=== PATIENT | male | born 1975 | race Caucasian/White ===

== ENCOUNTER 2016-09-25 20:07 | Emergency (ER) | payer OTHER ==
[~2016-09-25] VITALS: Ht 177.8 cm; Wt 105.2 kg
[~2016-09-25 20:07] MED LIST: CLONAZEPAM 1 MG1 M1 PO; DENIES; ERYTHROMYCIN E3.5 G2 OP; NORCO 5-325 TA1 EACH PO; PERPHEN AMITRI PO; RISPERDAL M-TAB2 MG PO; SEROQUEL 100 M100 M1 PO; STRATTERA60 MG PO; VYBRID; [UNRECOGNIZED DRUG - OTHER]
[2016-09-25 20:12] VITALS: BP 128/80
[2016-09-25] MEDS ORDERED: TRIPLE ANTIBIOT30 G2 TP (20:20)
== END 2016-09-25 20:25 | disposition home or self-care (01) ==
LOC: ER 20:07
DX: T22.212A Burn of second degree of left forearm, initial encounter (principal); F10.99 Alcohol use, unspecified with unspecified alcohol-induced disorder; Z88.0 Allergy status to penicillin; Z98.890 Other specified postprocedural states; X16.XXXA Contact with hot heating appliances, radiators and pipes, initial encounter; Y93.89 Activity, other specified; Y92.89 Other specified places as the place of occurrence of the external cause; Y99.8 Other external cause status

== ENCOUNTER → 2017-04-11 | Outpatient (CLI) | payer OTHER ==
[~2017-04-11] MED LIST changes: +TRIPLE ANTIBIOT30 G2 TP
== END ==
LOC: RAD 17:37
DX: R06.09 Other forms of dyspnea (principal)

== ENCOUNTER 2020-09-30 18:01 | Inpatient (IN) | payer OTHER ==
[~2020-09-30] VITALS: Ht 152.4 cm; Wt 103.0 kg
[2020-09-30 18:19] VITALS: BP 133/85
[2020-09-30 21:13] LABS: ABSOLUTE NEUTROPHILS 13.6 thou/uL (1.4-8.2); BASOPHILS 0.5 % (0.0-2.0); EOSINOPHILS 0.1 % (0.0-3.0); HEMATOCRIT 47.8 % (42.0-52.0); HEMOGLOBIN 16.5 gm/dL (14.0-18.0); LYMPHOCYTES 8.5 % (24.0-44.0); MCH 32.4 pg (26.0-34.0); MCHC 34.6 g/dL (28.0-37.0); MCV 93.4 fL (80.0-100.0); MONOCYTES 3.5 % (1.0-8.0); PLATELET COUNT 254 thou/uL (150-400); POLYS 87.4 % (36.0-66.0); RBC 5.11 mil/uL (4.50-6.00); RDW 13.1 % (10.5-14.5); WBC 15.5 thou/uL (4.0-11.0)
[2020-09-30 21:17] LABS: CALCIUM 8.9 mg/dL (8.5-10.1); POTASSIUM 4.3 mmol/L (3.5-5.1)
[2020-10-01] VITALS (9 sets, daily range): BP systolic 113–142; BP diastolic 67–88
[2020-10-01] MEDS ORDERED: BUSPIRONE HCL10 MG PO ×2 (00:13→11:43)
[2020-10-01] MEDS ORDERED: HYDROXYZINE HCL50 MG PO (00:13)
[2020-10-01] MEDS ORDERED: QUETIAPINE FUM100 MG PO (00:17)
[2020-10-01] MEDS ORDERED: OXCARBAZEPINE600 MG PO (00:17)
--- NOTE | 2020-10-01 05:43 | NUR ---
Today this pt has been NSR in the 80s on the heart monitor with stable VS and some stated throat pain in which he was wanting to be screened for strep. He has been oriented to the room and the call light in place and he understands that he has to call before he gets up. new orders have been started and he is otherwise asleep awaiting for the next plan.
[2020-10-01] MEDS ORDERED: SEROQUEL 100 M100 M1 (11:31)
--- NOTE | 2020-10-01 15:12 | NUR ---
Pt is AXOX4. C/O headache pain and nausea and vomiting. Says he feels dizzy sometimes. Lungs clear bowel sounds active. IV in Right AC running .9 NS at 100/hr. Tele is running NSR. Bed in low position and call light within reach.
--- NOTE | 2020-10-01 15:37 | NUR ---
PT ADMITTED RELATED TO VERTIGO. CM MET WITH PT AND KAY BABIN AT BEDSIDE THIS DAY. PT APPEARED TO BE A&O X4. CM ROLE INTRODUCED. PT INDICATED HE RESIDES IN A HOUSE ALONE WITH 1 STEP TO ENTER AND NO STEPS INSIDE. 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 PT INDICATED NO DME OR HH HX. PT INDICATED NO HH HX. PT'S PCP IS DR. LEANDER PARRISH. PT WAS TO HAVE A NEURO CONSULT WITH MRI AND AN ENT CONSULT. PT HAD MRI THIS DAY AND IT INDICATED THAT PT HAD STROKE. CARE TEAM INDICATED THAT PT IS TO TRANSFER TO CCU ONCE BED IS AVAIABLE. CM FOLLOWING REGARDING DC PLANNING.
--- NOTE | 2020-10-01 17:23 | NUR ---
PT ORIENTED TO ROOM AND UNIT, BED LOW AND LOCKED, SIDE RAILS UP X3 CALL LIGHT IN REACH, TELE APPLIED. WILL CONTINUE TO ASSESS.
--- NOTE | 2020-10-02 03:14 | NUR ---
ASSESSMENT: PT REMAIN ALERT AND ORIENT TIMES FOUR. NO SIGNIFICANT CHANGES WITH NIH. PT ABLE TO FOLLOW COMMANDS, NO DRIFT UE/LE, DOES NOT NEGLECT NEITHER SIDE. NO VISUAL LOSS OR CHANGES. C/O OF MILD PIMENTEL, TYLENOL AND ZOFRAN GIVEN WITH GOOD RELIEF. SR PER HANNAH, WILL CONTINUE TO MONITOR.
[2020-10-02 04:18] VITALS: BP 116/72
--- NOTE | 2020-10-02 07:18 | EKG ---
[address] [address] ELECTROCARDIOGRAM REPORT Name: MARILIAEDGAR MILLSIN Nargis Room #: 208-P ADM IN M.R.#: [id number] Admission: 09/30/20 Attend Phys: Britotn Rene MD Discharge: Date of : 77 Report #: [id number] 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 meredith : 1975 Requested By: Dimas Back Order Number: [id number] MD: Tim Luther Measurements Intervals Beecher Rate: 63 P: 40 NH: 188 QRS: 37 QRSD: 108 T: 48 QT: 407 QTc: 417 Interpretive Statements Sinus rhythm RSR' in V1 or V2, right VCD or RVH ST elev, probable normal early repol pattern Compared to ECG 06/17/2010 11:57:04 Right ventricular hypertrophy now present RSR' in V1 or V2 now present ST (T wave) deviation now present Electronically Signed On 10-02-2020 7:17:52 CDT by Tim Luther [email or web address] <ELECTRONICALLY SIGNED> By: Tim Luther MD, FACC 10/02/20716 38 38 Tim Luther MD, [facility] /EPI
[2020-10-02 08:07] VITALS: BP 128/82
[2020-10-02 08:29] LABS: HEMATOCRIT 43.5 % (42.0-52.0); HEMOGLOBIN 15.4 gm/dL (14.0-18.0); MCH 32.8 pg (26.0-34.0); MCHC 35.3 g/dL (28.0-37.0); MCV 92.9 fL (80.0-100.0); RBC 4.68 mil/uL (4.50-6.00); RDW 12.7 % (10.5-14.5); WBC 10.6 thou/uL (4.0-11.0)
[2020-10-02 08:40] LABS: CALCIUM 8.2 mg/dL (8.5-10.1); CREATININE 0.9 mg/dL (0.7-1.3); MAGNESIUM 2.2 mg/dL (1.8-2.4)
--- NOTE | 2020-10-02 11:06 | 2DMMODE ---
[facility] [place] [address] 2 D/M-MODE ECHOCARDIOGRAM Name: ESTEFANI VALDEZ Nargis Room #: 208-P ADM IN M.R.#: [id number] Admission: 09/30/20 Attend Phys: Britton Rene MD Discharge: Date of : 77 Report #: [id number] THIS REPORT FOR: cc: Wallace Flynn MD, Christopher B. MD Park, Jin S. MD ~ APPROVED REPORT Study performed: 10/02/2020 09:48:09 EXAM: Comprehensive 2D, Doppler, and color-flow Echocardiogram Patient Location: Bedside Room #: 208 Status: routine BSA: 2.25 HR: 84 bpm BP: 116/72 mmHg Rhythm: NSR Other Information Study Quality: Good Indications CVA/TIA Echo Enhancing Agent Indication: Rule out Shunt Agent(s) / Amount(s) Used: Agitated Saline 7 cc 2D Dimensions RVDd: 42.10 mm IVSd: 10.18 (7-11mm) LVOT Diam: 23.59 (18-24mm) LVDd: 31.36 mm PWd: 10.27 (7-11mm) Ascending Ao: 30.18 (22-36mm) LVDs: 19.89 (25-40mm) Left Atrium: 28.84 (27-40mm) Aortic Root: 29.32 mm IVC: 14.00 mm Volumes Left Atrial Volume (Systole) Single Plane 4CH: 39.35 mL Single Plane 2CH: 34.59 mL LA ESV Index: 19.00 mL/m2 Aortic Valve [facility] [address] [address] 2 D/M-MODE ECHOCARDIOGRAM Name: ESTEFANI VALDEZ Room #: 208-P [facility]#: [id number] Admission: 09/30/20 Attend Phys: Britton Rene, Discharge: Date of : 77 Report #: [id number] AoV Peak Aiden.: 1.01 m/s AO Peak Gr.: 4.12 mmHg LVOT Max P.43 mmHg LVOT Max V: 1.05 m/s PEACE Vmax: 4.53 cm2 Mitral Valve E/A Ratio: 1.3 MV Decel. Time: 174.61 ms MV E Max Aiden.: 0.96 m/s MV A Aiden.: 0.75 m/s MV PHT: 50.64 ms IVRT: 73.82 ms Pulmonary Valve PV Peak Aiden.: 1.04 m/s PV Peak Gr.: 4.35 mmHg Pulmonary Vein P Vein S: 0.50 m/s P Vein A: 0.23 m/s P Vein D: 0.27 m/s P Vein A Dur.: 92.3 msec P Vein S/D Ratio: 1.85 Tricuspid Valve TR Peak Aiden.: 2.25 m/s TR Peak Gr.: 20.29 mmHg PA Pressure: 25.00 mmHg Left Ventricle The left ventricle is normal size. There is normal LV segmental wall motion. There is normal left ventricular wall thickness. Left ventricular systolic function is normal. The left ventricular ejection fraction is within the normal range. LVEF is 60-65%. The left ventricular diastolic function is normal. Right Ventricle The right ventricle is normal size. The right ventricular systolic function is normal. Atria The left atrium size is normal. Injection of bubbles documented no interatrial shunt. The right atrium size is normal. Aortic Valve The aortic valve is normal in structure. No aortic regurgitation is present. There is no aortic valvular stenosis. Mitral Valve [facility] [address] [place] [address] 2 D/M-MODE ECHOCARDIOGRAM Name: ESTEFANI VALDEZ Room #: 208-P [facility] IN M.R.#: [id number] Admission: 09/30/20 Attend Phys: Britton Rene, Discharge: Date of : 77 Report #: [id number] The mitral valve is normal in structure. There is no mitral valve regurgitation noted. No evidence of mitral valve stenosis. Tricuspid Valve The tricuspid valve is normal in structure. There is trace tricuspid regurgitation. Estimated PAP 25 mmHg. Pulmonic Valve The pulmonary valve is normal in structure. There is no pulmonic valvular regurgitation. Great Vessels The aortic root is normal in size. IVC is normal in size and collapses >50% with inspiration. Pericardium There is no pericardial effusion. <Conclusion> The left ventricle is normal size. There is normal left ventricular wall thickness. Left ventricular systolic function is normal. The right ventricle is normal size. The left atrium size is normal. Injection of bubbles documented no interatrial shunt. The aortic valve is normal in structure. There is no mitral valve regurgitation noted. There is trace tricuspid regurgitation. <ELECTRONICALLY SIGNED> By: Damien Rios MD 10/02/20 1105 1105 1105 Damien Rios MD /INF
[2020-10-02 12:01] LABS: CHOLESTEROL 193 mg/dL (<200); HDL CHOLESTEROL 38 mg/dL (>40); LDL CHOLESTEROL 125 mg/dL (<100); TC:HDL 5.1 Ratio (Not establshd); TRIGLYCERIDE 152 mg/dL (<150); VLDL 30 mg/dL (<40)
--- NOTE | 2020-10-02 12:54 | NUR ---
[facility] bending shed worker here and visited with pt's mother as pt down for testing. [facility] can accept the pt is inpt rehab indicated when medically cleared. He is doing well with PT and OT dc'd today;therefore inpt rehab may not be needed. Pt had ANNE-MARIE today. Plans for echo and repeat CT tomorrow. Will follow.
[2020-10-02 15:43] VITALS: BP 126/81
--- NOTE | 2020-10-02 16:54 | NUR ---
ASSESSMENT CHARTED - MEDS PER LEON - SHABANA DIET AND FLUIDS. SEEN BY SPEECH / OCC / AND PHYS THIS SHIFT. UP WITH STBY ASSIST. PT NIHG SCORE 0. PT TO THAVE CT OF HEAD TOMORROW - CRDIOLOGY CONSUTLED AND PATIENT TO HAD ANNE-MARIE DONE IN THE AM. ECHO COMPLETED THIS AM - ACCUCHECKS CHARTED - GIVEN TYLENOL FOR CO'S OF A HEDACHE - WITH GOOD RELIEF. AT THE BEDSIDE THIS AFTERNOON - MOTHER HERE THIS AM. NO CO'S AT THE PRESENT TIME.
[2020-10-02 19:13] VITALS: BP 113/69
[2020-10-02 20:35] VITALS: BP 119/77
--- NOTE | 2020-10-03 05:50 | NUR ---
RECEIVED THE PATIENT ALERT AND ORIENTED X4.ON ROOM AIR BREATHING SPONTANEOUSLY.NOT IN DISTRESS.HAD COMPLAINT OF THROBBING HEADACHE AT THE TEMPORAL AREA AT 0835PM,NRS 8/10,VITALLY STABLE, BLOOD PRESSURE WAS WITHIN NORMAL, INFORMED PRINCIPAL SYSTEMS ENGINEER ON DUTY, SHE TOLD TO INFORM DR. QUINTANILLA.DR. QUINTANILLA TOLD TO DO THE CT SCAN IN THE NIGHT.CT SCAN DONE AND REPORT RELAYED TO PRINCIPAL SYSTEMS ENGINEER ON DUTY.NO NEW ORDER, JUST TO CONTINUE MONITOR THE PATIENT.PATIENT HAD BEEN RELEIVED OF HEADACHE AFTER GIVING TYLENOL NRS 0/10.NIH REMAINS O THROUGHOUT THE SHIFT.PATIENT WAS ABLE TO SLEEP.KEPT NPO FROM MIDNIGHT.FOR ANNE-MARIE THIS MORNING.FOR CONTINOUS MONITORING.
[2020-10-03 05:57] VITALS: BP 118/82
--- NOTE | 2020-10-03 08:32 | TEE ---
[facility] [place] [address] TRANSESOPHAGEAL ECHOCARDIOGRAM Name: ESTEFANI VALDEZ Room #: 208-P ADM IN M.R.#: [id number] Admission: 09/30/20 Attend Phys: Britton Rene MD Discharge: Date of : 77 Report #: [id number] THIS REPORT FOR: cc: Wallace Flynn MD, Christopher B. MD Santiago, Patrick MD FACC ~ APPROVED REPORT Study performed: 10/03/2020 07:43:06 EXAM: Transesophageal Echocardiogram Patient Location: CV Status: routine BSA: 2.19 HR: 75 bpm BP: 107/84 mmHg Rhythm: NSR Other Information Study Quality: Adequate Indications TIA. RULE OUT SHUNT. Procedure After obtaining informed consent, patient underwent transesophageal echo in the [employer]. Type of Sedation : Conscious Sedation Sedation was administered by Vandana Recinos RN. Sedation start time: 756 Case end Time: 806 Sedation was achieved intravenously with: Versed (4) Fentanyl (75) Transesophageal probe was inserted and advanced into esophagus without difficulty by Tim Luther MD FACC. Echo enhancement indication: R/O Septal defect. Echo enhancement agent administered: Agitated Saline The ANNE-MARIE was performed without complications. Throughout the procedure, the blood pressure, pulse oximetry, cardiac rhythm, and rate were monitored. The patient tolerated the procedure without adverse effects. Recovery from conscious sedation was uneventful and vital signs were stable. Left Ventricle [facility] [address] [place] [address] TRANSESOPHAGEAL ECHOCARDIOGRAM Name: ESTEFANI VALDEZ Room #: 208-P [facility] IN M.R.#: [id number] Admission: 09/30/20 Attend Phys: Britton Rene, Discharge: Date of : 77 Report #: [id number] The left ventricle is normal size. There is normal LV segmental wall motion. There is normal left ventricular wall thickness. Left ventricular systolic function is normal. LVEF is 60-65%. Right Ventricle The right ventricle is normal size. The right ventricular systolic function is normal. Atria The left atrium size is normal. No thrombus is visualized in the left atrium or appendage. The right atrium size is normal. No shunting noted with bubble injection. Aortic Valve The aortic valve is normal in structure. No aortic regurgitation is present. There is no aortic valvular stenosis. Mitral Valve The mitral valve is normal in structure. Trace mitral regurgitation. No evidence of mitral valve stenosis. Tricuspid Valve The tricuspid valve is normal in structure. Trace tricuspid regurgitation. Great Vessels The aortic root is normal in size. The ascending aorta is normal in size. Pericardium There is no pericardial effusion. <Conclusion> Timeout was performed Consent was obtained Esophageal probe was advanced was advanced without difficulty after proper sedation Left atrial appendage, moderate size no evidence of mass or clot detected Normal left ventricular size, wall thickness, ejection fraction 60% Normal atrial size Trileaflet aortic valve adequate cusp excursion Normal mitral valve structure and function, trace mitral valve insufficiency No tricuspid valve insufficiency [facility] [address] [place] [address] TRANSESOPHAGEAL ECHOCARDIOGRAM Name: ESTEFANI VALDEZ Room #: 208-P [facility] IN M.R.#: [id number] Admission: 09/30/20 Attend Phys: Britton Rene, Discharge: Date of : 77 Report #: [id number] No evidence of ASD/VSD by color flow/bubble study No pericardial effusion Normal aortic root size Aorta no calcification Patient tolerated procedure well No evidence of intracardiac source of emboli <ELECTRONICALLY SIGNED> By: Tim Luther MD, FACC 10/03/20831 1 1 Tim Luther MD, FACC /INF
[2020-10-03 09:00] VITALS: BP 128/79
--- NOTE | 2020-10-03 11:20 | NUR ---
Pt has been accepted for [facility] acute rehab stay and dcing today. Pt and his mother agreeable as pt lives alone and not able to drive to any outpt program at this time. The pt's fiance lives in [place], mother in [place] and the pt in [place]. He is on social security disability and has a permanent works comp income for his lifetime. He does not have a secondary ins plan to supplement his medicare. [place] medicaid application with spend down discussed as well as getting a supplement. The pt has a large amount of debt. He has mental health struggles as well. [facility] may be a good outpt therapy program for him if needed when he goes home from 5 or f/u for [facility]. All parties updated. Dc to rehab today.
[2020-10-03] MEDS ORDERED: LIPITOR40 MG PO (11:26)
[2020-10-03] MEDS ORDERED: PEPCID20 MG PO (11:26)
[2020-10-03] MEDS ORDERED: HOME MEDICATION PO (11:26)
[2020-10-03] MEDS ORDERED: HEPARIN SO5000 UNIT/ SUBQ (11:26)
[2020-10-03] MEDS ORDERED: PLAVIX 75 MG TA75 M1 PO (11:26)
[2020-10-03] MEDS ORDERED: TYLENOL325 MG PO (11:26)
[2020-10-03] MEDS ORDERED: LO-DOSE ASPIRIN81 M1 PO (11:26)
[2020-10-03] MEDS ORDERED: MECLIZINE HCL25 MG PO (11:27)
--- NOTE | 2020-10-03 15:03 | NUR ---
ASSESSMENT CHARTED - MEDS PER APR - PT WENT FOR ANNE-MARIE THIS AM. SHABANA WELL. SHABANA DIET AND FLUIDS WITH NO CO'S OF NASUEA. UP WITH USE OF WALKER IN ROOM SLIGHTLY UNSTEADY ON FEET. PT "ABSENT MINDED" AT TIMES. SHORT TERM MEMORY NOT ALWAYS GOOD WITH RECALL. SEEN BY PHYS / OCC THERAPY . PT TRANSFERED TO REHAB VIA WHEELCHAIR. REPORT CALLED TO UNIT. NO CO'S AT TIME OF TRANSFER.
--- NOTE | 2020-10-06 13:22 | HC ---
[facility] [place] [address] CONSULTATION Name: ESTEFANI VALDEZ Room #: 208-P [facility] M.R.#: [id number] Admission: 09/30/20 Attend Phys: Britton Rene MD Discharge: 10/03/20 Date of : 77 Report #: [id number] THIS REPORT FOR: cc: Wallace Flynn MD, Christopher B. MD Khosla,Jc Parnell MD ~ DATE OF SERVICE: 10/01/2020 HISTORY OF PRESENT ILLNESS: This is a 45-year-old male patient whose consultation was kindly requested by Dr. Rene because an abnormal MRI report came back. The patient was admitted with dizziness. He also had some sore throat. It came in rather suddenly. He had some upset stomach. The dizziness is better, but is still there. MRI was done to further evaluate that. MRI films were reviewed and it showed a small lacunar CVA in the left cerebellum. Subsequently, if we ordered a CT angiogram stat on this patient, CT angiogram does not show any definite abnormality. REVIEW OF SYSTEMS: Positive for rotator cuff injury on the right shoulder. 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 He has obstructive sleep apnea and bipolar disorder. Also, he has ADHD. This was his relevant 14-point review of system. He is not complaining of any, i.e., cardiac, respiratory, GI, , musculoskeletal, constitutional, dermatological, hematological, and allergic symptom associated with present symptomatology. PAST MEDICAL HISTORY: Positive for some granuloma. FAMILY HISTORY: Positive for coronary artery disease. SOCIAL HISTORY: This patient has a history of smoking as well as alcohol use. PHYSICAL EXAMINATION: NEUROLOGIC: Indicate he is alert, responsive. He does have some psychiatric issues, but his speech looks intact. Cranial nerve examination 2-12 looks unremarkable. I did not see any pronounced nystagmus. He moves all 4 extremities. He says touch feels somewhat different in the left leg as compared to the right leg. He does not know how long it is going on. Neither plantar was upgoing. I did not make him walk. We will ask physical therapy to make him walk. I could not look at his fundus. His tone looks unremarkable. It is difficult to tell about his knee jerks on both sides. VITAL SIGNS: Blood pressure is 129/88, respirations 18, pulse 77, temperature is 98.4. LABORATORY DATA: His white count is up about 15.5. Sodium is normal. MRI and CT was reviewed and [place] [address] CONSULTATION Name: ESTEFANI VALDEZ Room #: 208-P [facility] ..#: [id number] Admission: 09/30/20 Attend Phys: Britton Rene MD Discharge: 10/03/20 Date of : 77 Report #: [id number] IMPRESSION: 1. Cerebellar cerebrovascular accident. They are so small. Typically, they cause very little symptoms, but the cause need to be determined if possible. 2. Lot of psychiatric issues. 3. Has throat problem, probably has nothing to do with the present symptomatology, but because of recurrence that need to be worked and I will defer that to the hospitalist. RECOMMENDATIONS: 1. Echo with a bubble study to look for patent foramen ovale. 2. This patient will need 30 days event monitor. 3. Lipid profile. 4. Other workup as ordered. 5. We will give a loading dose of Plavix and he should be on dual antiplatelet therapy with aspirin and Plavix for 21 days, but after that he can be on aspirin depending upon what his rest of the workup shows. I discussed all of it with this patient and I also discussed with Dr. Rene as well as downstairs. Thank you very much for this referral. <ELECTRONICALLY SIGNED> By: Jc Eric MD 10/06/20 1322 [id number] Jc Eric MD /nt
== END 2020-10-03 15:14 | DRG 66 ==
LOC: ER 18:01 → 2N 22:16 → EROBS 22:16 → 4W 22:16 → 2N 10-01 17:15
PROVIDERS: Emergency Medicine; Nurse Practitioner; Psychiatry & Neurology Neuromuscular Medicine; ADMIT Internal Medicine; ATTEND Internal Medicine
PROC: B24BZZ4 Ultrasonography of Heart with Aorta, Transesophageal (ICD-10-PCS; principal; 2020-10-03)
DX: I63.89 Other cerebral infarction (principal); D72.829 Elevated white blood cell count, unspecified; Z20.822 Contact with and (suspected) exposure to COVID-19; F31.9 Bipolar disorder, unspecified; J02.0 Streptococcal pharyngitis; K21.9 Gastro-esophageal reflux disease without esophagitis; G47.33 Obstructive sleep apnea (adult) (pediatric); F17.210 Nicotine dependence, cigarettes, uncomplicated; Z71.6 Tobacco abuse counseling; F90.9 Attention-deficit hyperactivity disorder, unspecified type; Z60.2 Problems related to living alone; E78.5 Hyperlipidemia, unspecified; Z88.0 Allergy status to penicillin; Z82.49 Family history of ischemic heart disease and other diseases of the circulatory system; Z79.82 Long term (current) use of aspirin; Z79.899 Other long term (current) drug therapy
CPT/HCPCS: 10081

== ENCOUNTER 2020-10-03 12:26 | Inpatient (IN) | payer OTHER ==
[~2020-10-03] VITALS: Ht 175.3 cm; Wt 102.1 kg
--- NOTE | ~2020-10-03 | PLAN ---
[facility] [place] [address] REHAB UNIT PLAN OF CARE Name: ESTEFANI VALDEZ Room #: 510-P ADM IN M.R.#: [id number] Admission: 10/03/20 Attend Phys: Shawn Sheridan MD Discharge: Date of : 77 Report #: [id number] THIS REPORT FOR: cc: Wallace Flynn MD, Christopher B. MD Smithson,Shawn Paul MD ~ DATE OF SERVICE: 10/04/2020 PROGRESS NOTE AND OVERALL PLAN OF CARE HISTORY OF PRESENT ILLNESS: The patient is seen on the inpatient rehabilitation cade. I saw him late yesterday afternoon and visited with he and his significant other. The patient was having a headache, which he has had headaches throughout his acute hospitalization prior to rehabilitation transfer. He has headaches alternating with some dizziness. Overall, the dizziness is improving. 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 He notes that overall he is doing better. When I saw him yesterday, he was pleasant, alert, and appropriate. Vital signs are stable. EOMs are full without nystagmus. Facies are symmetric. Ekowmu-or-inuc and rapid alternating movements were intact. Tone is intact. There is no Garcia's in lower extremities, no evidence of any increased tone, strength appeared good. He was placed on tramadol. He is working in therapies and was set up for upper body dressing, standby assistance for lower body dressing, toileting is min assist. He is able to get on and off the toilet with standby assistance with use of a grab bar, no complaints of dizziness. ____ some decreased short-term memory was noted. He is able to ambulate back to bed in his room contact guard with a roller walker. Speech therapy evaluation is also underway. ASSESSMENT: 1. Acute cerebellar stroke. 2. High level balance deficits. 3. Bipolar disorder. 4. Sore throat with viral illness. 5. Hyperlipidemia. 6. Tobacco abuse. PLAN: The overall plan of care is based on the pre-admit screen and information garnered from therapy assessments. 1. Estimated length of stay probably around 7 days. 2. Medical prognosis is reasonably good. 3. Anticipated interventions includes the interdisciplinary acute inpatient patient program. 4. Anticipated functional outcomes would be for the patient to become modified independent with transfers, mobility and ADLs and improved cognition, so that he can [place] [address] REHAB UNIT PLAN OF CARE Name: ESTEFANI VALDEZ Room #: 510-P [facility]#: [id number] Admission: 10/03/20 Attend Phys: Shawn Sheridan MD Discharge: Date of : 77 Report #: [id number] 5. Discharge destination would be for the patient to return back to the home setting. He does live alone, but does have a supportive fiance and supportive mother, ____ closely. 6. Expected therapy by discipline includes PT, OT and speech 1 hour per day each five days a week throughout the duration of the acute inpatient rehabilitation stay. The patient's prognosis for significant practical improvement within a reasonable period of time appears good. Given the patient's complex medical condition and risk of further medical complications, rehabilitation services could not be safely provided at a lower level of care such as a halfway facility. I did have discussion with the patient and his significant other and we will be monitoring him closely regarding his symptomatology. I also discussed with my nurse practitioner that there would be a very low threshold as far as obtaining a CT of the head if there were any concerns or questions with changes in his condition based on where the strokes are located and the potential for herniation, etc. He looked very good on exam to me yesterday and we will be following him closely while he is on the rehabilitation cade. By: 1103 1102 Shawn Sheridan MD /nt
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
[~2020-10-03 12:26] MED LIST changes: +BUSPIRONE HCL10 MG PO; +HEPARIN SO5000 UNIT/ SUBQ; +HOME MEDICATION PO; +HYDROXYZINE HCL50 MG PO; +LIPITOR40 MG PO; +LO-DOSE ASPIRIN81 M1 PO; +MECLIZINE HCL25 MG PO; +OXCARBAZEPINE600 MG PO; +PEPCID20 MG PO; +PLAVIX 75 MG TA75 M1 PO; +QUETIAPINE FUM100 MG PO; +TYLENOL325 MG PO
[2020-10-03 15:35] VITALS: BP 115/79
--- NOTE | 2020-10-03 16:16 | NUR ---
Chart review. New to acute rehab today. DX of stroke. Unable to visit with mile r/t nurse in room for assessment and therapy eval. Lives home alone, mom lives in area and his fiances. Independent prior to hospital. drives vehicle. No dme. manage own medication. PCP dr Latasha lara. Will cont following as needed for dc needs.
[2020-10-03 20:22] VITALS: BP 122/81
--- NOTE | 2020-10-04 03:02 | NUR ---
ASSUMED CARE OF PT AT SHIFT CHANGE. PT IS AOX4 AND LETS NEEDS BE KNOWN. FALL PRECAUTION IN PLACE. NEURO INTACT. PT DENIED HEADACHES THIS SHIFT. ASSESSMENT CHARTED. PT WAS ABLE TO GET COMFOTABLE AND SLEEP PART OF THE SHIFT. VSS AND NO S/S OF ACUTE DISTRESS. WILL CONTINUE TO MONIOTR.
[2020-10-04 06:21] LABS: MCH 32.5 pg (26.0-34.0); MCHC 34.9 g/dL (28.0-37.0); MCV 93.3 fL (80.0-100.0); RBC 4.92 mil/uL (4.50-6.00); RDW 12.8 % (10.5-14.5); WBC 10.2 thou/uL (4.0-11.0)
[2020-10-04 06:31] LABS: CALCIUM 8.8 mg/dL (8.5-10.1); CREATININE 1.1 mg/dL (0.7-1.3); POTASSIUM 3.9 mmol/L (3.5-5.1)
[2020-10-04 08:00] VITALS: BP 123/96
--- NOTE | 2020-10-04 11:05 | NUR ---
Care assumed of patient at 0715: Patient resting quietly in bed at start of shift. Patient alert and oriented x4. Calm, pleasant and cooperative. Took medication whole without difficulty. Continent of bowel and bladder. Jovial at times. Stated goal for the day was to "not get covid". Educated on fall risk precautions. Reports feeling bored and lonely. Offered one on one interaction this AM. Affect seemed brighter after socializing with staff. Patient ambulated to the bathroom with walker and gait belt and stand by assist. Patient denies pain and discomfort this AM. Patient denies having a headache. Reports occasional numbness and tingling to fingers.
--- NOTE | 2020-10-04 17:55 | NUR ---
PT WENT TO BATHROOM AFTER BEING TREATED WITH TRAMADOL FOR A MILD HEADACHE. AFTER RETURNING TO THE BED, PT C/O DIZZINESS TO TRANSFERRER KELLY WHO IMMEDIATELY CAME TO GET RN. RN TEXTED SHYANN CAMPUZANO NP WITH CONCERN AND VS" 125/88, HR 69. WILL CONTINUE TO MONITOR CLOSELY AND NO NEW ORDERS RECEIVED.
--- NOTE | 2020-10-04 18:00 | NUR ---
PUPILS EQUAL, NO NEURO CHANGES NOTED AT THIS TIME.
--- NOTE | 2020-10-04 18:40 | NUR ---
MECLIZINE GIVEN FOR DIZZINESS AND PT SITTING UP IN GOOD SPIRITS, PLAYING CARDS WITH HIS S.O.
[2020-10-04 20:07] VITALS: BP 124/89
[2020-10-04 20:10] VITALS: BP 109/78; BP 129/94
--- NOTE | 2020-10-05 02:47 | NUR ---
PATIENT AOX4 MAKES NEEDS KNOWN. PATIENT HAD A SHOWER THIS SHIFT. PATIENT C/O DIZZINESS AND HEADACHE CALLED FREELANCE MAKEUP ARTIST NEW ORDER OF A CT SCAN,CT WAS REMARKABLE FREELANCE MAKEUP ARTIST NOTIFIED. FALL PRECAUTION IN PLACE.PATIENT IN BED ASLEEP AT THIS TIME BREATHING REGULAR AND UNLABOURED.
[2020-10-05 05:36] LABS: GLYCOHEMOGLOBIN (HGB A1C) 4.8 % (4.8-5.6)
[2020-10-05 07:44] VITALS: BP 122/83
[2020-10-05 19:55] VITALS: BP 125/75
--- NOTE | 2020-10-06 05:10 | NUR ---
ASSUMED CARE AT 1900 OF 10/05. PATIENT IS A&OX4. DENIES SOB. REPORTS NECK PAIN, LIDODERM PATCH APPLIED TO AREA TO MANAGE PAIN. STAND BY ASSIST USING GB AND WALKER FOR AMBULATION TO BATHROOM. USES URINAL AT BEDSIDE TO VOID. ABLE TO MAKE NEEDS KNOWS. CALL LIGHT PLACED WITHIN REACH. SLEEPING DURING HOURLY ROUNDS, WILL CONTINUE TO MONITOR.
[2020-10-06 07:15] VITALS: BP 118/84
--- NOTE | 2020-10-06 09:52 | NUR ---
PT WAS SLEEPING IN THIS AM. PT DENIES ANY HEADACHE AND DIZZINESS. PT STATED HE WANTS TO GO HOME AND IS READY. PT UP WITH WALKER TO BATHROOM. PT LUNGS CLEAR AND ON ROOM AIR. PT VOIDS PER URINAL AND COLOR IS YELLOW. PT STATED HE HAD HIS MOM BRING IN A HEATING PAD AND THAT WE WAS MAD AT HIM FOR BRINGING IT IN AND NOT HAVING AN ORDER.
[2020-10-06 14:32] VITALS: BP 143/84
[2020-10-06 19:53] VITALS: BP 111/70
--- NOTE | 2020-10-07 02:54 | NUR ---
ASSUMED CARE AT 1900 OF 10/06. PATIENT IS A&OX4. DENIES SOB. REPORTED A HEADACHE AND NECK PAIN, PAIN MANAGED WITH PRN TRAMADOL AND LIDODERM PATCH TO BACK OF NECK. STAND BY ASSIST WITH TRANSFERS AND ABULATION USING GB AND WALKER. NO FURTHER C/O OF DIZZINESS OR VERTIGO. SLEEPING DURING HOURLY ROUNDS, CALL LIGHT WITHIN REACH, WILL CONTINUE TO MONITOR.
[2020-10-07 07:55] VITALS: BP 113/63
--- NOTE | 2020-10-07 08:46 | NUR ---
PT RESTING THIS AM. PT STATED HE WANTED TO GO HOME SOON. PT UP WITH STAND-BY ASSIST. PT LUNGS CLEAR AND ON ROOM AIR. PT WANTING TO HAVE A HEATING PAD DUE TO HIS ONE THEY WANT TO TAKE HOME. PT DENIES ANY LIGHTHEADNESS OR DIZZINESS.
--- NOTE | 2020-10-07 11:00 | NUR ---
PT GOT HEATING PAD AT THIS TIME. PT WORKING WITH THERAPY. PT GAIT IS STEADY.
--- NOTE | 2020-10-07 13:24 | NUR ---
Team meeting, recommendation: supervision with walking, stand by assist with stair. mom cont. to manage bills. Viraj will set up medication for him. He should start calling for his medication. Make him MOD I. No dme. Dc , follow up with neuropsychic after dc. Outpt rehab physical therapy and speech. No driving till follows up with pcp.
[2020-10-07] MEDS ORDERED: TRAMADOL 50 MG50 MG PO (16:52)
[2020-10-07 19:17] VITALS: BP 127/84
--- NOTE | 2020-10-07 22:37 | NUR ---
Assumed care on 10/07/20 @ 1900, in bed, awake, alert and oriented x4. Able to express himself and express needs and wants. Took HS meds whole with water, PRN Tramadol provided for Pain. Call light within reach, will continue to monitor for safety and comfort as per unit protocol.
[2020-10-08 07:15] VITALS: BP 113/76
[2020-10-08] MEDS ORDERED: PLAVIX 75 MG TA75 M1 PO (09:13)
[2020-10-08] MEDS ORDERED: OXCARBAZEPINE600 MG PO (09:13)
[2020-10-08] MEDS ORDERED: LIPITOR40 MG PO (09:13)
[2020-10-08] MEDS ORDERED: MECLIZINE HCL25 MG PO (09:13)
[2020-10-08] MEDS ORDERED: TOPAMAX 25 MG T25 M1 PO ×2 (09:15→10:20)
--- NOTE | 2020-10-08 09:29 | NUR ---
Dc home today, cardiology consulted to see prior to dc for event monitor/loop recorder. CM visited with [facility] about home health and list choice provided. never had home health before, [facility] per [facility]. referral sent to [facility] , for pt and st. Step father will transport mile home today.
[2020-10-08 09:35] VITALS: BP 113/76
--- NOTE | 2020-10-09 07:04 | NUR ---
I have reviewed the documentation by Niya Collier from 10/06/20 to 10/06/20 and I concur with it. CORI BURNHAM
== END 2020-10-08 11:55 | disposition home health service (06) | DRG 66 ==
PROVIDERS: Nurse Practitioner Family; ADMIT Physical Medicine & Rehabilitation; ATTEND Physical Medicine & Rehabilitation
DX: I63.9 Cerebral infarction, unspecified (principal); F31.9 Bipolar disorder, unspecified; E78.5 Hyperlipidemia, unspecified; M47.812 Spondylosis without myelopathy or radiculopathy, cervical region
CPT/HCPCS: 10112

== ENCOUNTER 2020-10-18 20:14 | Emergency (ER) | payer OTHER ==
[~2020-10-18] VITALS: Ht 175.3 cm; Wt 103.0 kg
[~2020-10-18 20:14] MED LIST changes: +TOPAMAX 25 MG T25 M1 PO; +TRAMADOL 50 MG50 MG PO
[2020-10-18 20:53] LABS: ABSOLUTE NEUTROPHILS 9.4 thou/uL (1.4-8.2); BASOPHILS 0.9 % (0.0-2.0); EOSINOPHILS 3.4 % (0.0-3.0); HEMATOCRIT 47.3 % (42.0-52.0); HEMOGLOBIN 16.7 gm/dL (14.0-18.0); LYMPHOCYTES 21.9 % (24.0-44.0); MCH 32.2 pg (26.0-34.0); MCHC 35.3 g/dL (28.0-37.0); MCV 91.1 fL (80.0-100.0); MONOCYTES 6.9 % (1.0-8.0); PLATELET COUNT 280 thou/uL (150-400); POLYS 66.9 % (36.0-66.0); RBC 5.19 mil/uL (4.50-6.00); RDW 12.6 % (10.5-14.5); WBC 14.1 thou/uL (4.0-11.0)
[2020-10-18 21:19] LABS: CALCIUM 9.2 mg/dL (8.5-10.1); CREATININE 1.5 mg/dL (0.7-1.3); POTASSIUM 4.2 mmol/L (3.5-5.1)
[2020-10-19 00:45] VITALS: BP 142/88
--- NOTE | 2020-10-21 07:34 | EKG ---
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 [employer]: BERNA : 1975 Requested By: Uday Guerra Order Number: [id number] : Tim Luther Measurements Intervals [place] Rate: 80 P: 69 NE: 184 QRS: 70 QRSD: 85 T: 62 QT: 342 QTc: 395 Interpretive Statements Sinus rhythm Compared to ECG 09/30/2020 20:39:53 Right ventricular hypertrophy no longer present ST (T wave) deviation no longer present Electronically Signed On 10-21-2020 7:34:46 CDT by Tim Luther [email or web address] <ELECTRONICALLY SIGNED> By: Tim Luther MD, [facility] 10/21/20 0734 18 18 Tim Luther MD, FACC /EPI
== END 2020-10-19 00:45 | disposition home or self-care (01) ==
LOC: ER 20:14
PROVIDERS: Student in an Organized Health Care Education/Training Program
DX: R07.89 Other chest pain (principal); M79.602 Pain in left arm; F31.9 Bipolar disorder, unspecified; Z98.890 Other specified postprocedural states; Z79.899 Other long term (current) drug therapy; Z79.82 Long term (current) use of aspirin; Z79.1 Long term (current) use of non-steroidal anti-inflammatories (NSAID); Z88.0 Allergy status to penicillin

== ENCOUNTER → 2020-11-18 | Outpatient (CLI) | payer OTHER ==
[2020-11-19 10:08] LABS: ANTI-DNA SCREEN <1 IU/mL (0-9); ANTI-RNP 0.2 AI (0.0-0.9)
== END ==
LOC: MRI 08:44
PROVIDERS: ATTEND Psychiatry & Neurology Neuromuscular Medicine
DX: G93.89 Other specified disorders of brain (principal); I63.9 Cerebral infarction, unspecified; E66.9 Obesity, unspecified; J34.89 Other specified disorders of nose and nasal sinuses; G31.89 Other specified degenerative diseases of nervous system; Z87.891 Personal history of nicotine dependence

== ENCOUNTER 2021-02-07 23:01 | Emergency (ER) | payer OTHER ==
[~2021-02-07] VITALS: Ht 175.3 cm; Wt 74.8 kg
[2021-02-08 04:41] VITALS: BP 145/101
== END 2021-02-08 04:43 | disposition home or self-care (01) ==
LOC: ER 23:01
DX: S61.216A Laceration without foreign body of right little finger without damage to nail, initial encounter (principal); F31.9 Bipolar disorder, unspecified; Z98.890 Other specified postprocedural states; Z79.82 Long term (current) use of aspirin; Z79.891 Long term (current) use of opiate analgesic; Z79.899 Other long term (current) drug therapy; Z88.0 Allergy status to penicillin; W23.0XXA Caught, crushed, jammed, or pinched between moving objects, initial encounter; Y93.89 Activity, other specified; Y92.89 Other specified places as the place of occurrence of the external cause; Y99.8 Other external cause status

== ENCOUNTER 2021-02-24 19:17 | Emergency (ER) | payer OTHER ==
[~2021-02-24] VITALS: Ht 175.3 cm; Wt 99.8 kg
[2021-02-24 19:44] VITALS: BP 135/91
== END 2021-02-24 22:50 | disposition home or self-care (01) ==
LOC: ER 19:17
DX: Z48.01 Encounter for change or removal of surgical wound dressing (principal); Z88.0 Allergy status to penicillin; Z79.899 Other long term (current) drug therapy; Z79.82 Long term (current) use of aspirin; Z86.73 Personal history of transient ischemic attack (TIA), and cerebral infarction without residual deficits; Z98.890 Other specified postprocedural states